=== PATIENT | female | born 1965 | race Caucasian/White ===

== ENCOUNTER → 2020-06-01 | Outpatient (CLI) | payer OTHER ==
[~2020-06-01] MED LIST: CALCIUM 600+D1 EACH PO; ESTRACE1 MG PO; KEFLEX500 M1 PO; NORCO 10-325 T1 EACH PO; NORVASC5 MG PO; PROBIOTIC1 EAC7 PO; VALIUM5 MG PO
== END | disposition home or self-care (01) ==
LOC: M.ULTRA 08:09
PROVIDERS: ATTEND Surgery
DX: R92.1 Mammographic calcification found on diagnostic imaging of breast (principal); Z79.899 Other long term (current) drug therapy

== ENCOUNTER → 2020-06-06 | Day surgery (SDC) | payer OTHER ==
[~2020-06-06] MED LIST changes: +HYDROCODON-ACE1 EAC7 PO; -NORCO 10-325 T1 EACH PO
--- NOTE | 2020-06-06 13:42 | H ---
[place] [address] HISTORY AND PHYSICAL Name: KRYSTIN MICHAEL Room: [facility].#: [id number] Admission: 06/06/20 Attend Phys: Christiane Car MD Discharge: Date of : 69 Report #: [id number] THIS REPORT FOR: cc: Santiago Doll MD, Neal A. MD ~ Christiane Car MD To be treated on 06/06/2020. ADMITTING DIAGNOSIS: Ductal carcinoma, right breast. HISTORY OF PRESENT ILLNESS: A 54-year-old female who presented to my office after evaluation by Dr. Colunga via telemedicine where she was found to have an abnormal mammogram in February and she underwent a stereotactic biopsy of the right breast and the pathology revealed ductal carcinoma in situ. PAST MEDICAL HISTORY: Heart disease. MEDICATIONS: Calcium, amlodipine, probiotic, vitamin B12, and estradiol. PAST SURGICAL HISTORY: Includes a surgical ablation of the heart for atrial fibrillation and a ganglion cyst in 2005. SOCIAL HISTORY: Former smoker, quit 3 years ago. Currently, drinks alcohol 4-5 times a week. FAMILY HISTORY: Noted for father with heart disease. REVIEW OF SYSTEMS: No nausea or abdominal pain. No axillary swellings, no new breast findings of dimpling or retractions or nipple discharge and she can feel a breast mass right now. She denies any weakness or fatigue or fever. PHYSICAL EXAMINATION: GENERAL: Modestly well-developed female in no acute distress. HEAD, EARS, EYES, NOSE AND THROAT: Unremarkable. NECK: Supple. Normal size. LUNGS: Clear. CARDIAC: Regular rate and rhythm. ABDOMEN: Soft, nontender. BREASTS: Nontender. No nipple discharge. NEUROLOGIC: She is oriented to person, place and time. IMPRESSION AND PLAN: Ductal carcinoma in situ of the right breast. After lengthy discussions and visit with her oncologist, she is wanting to proceed with seed localization followed by lumpectomy and placement of SYMONE spacer for partial breast radiation. The risks and benefits of [place] [address] HISTORY AND PHYSICAL Name: KRYSTIN MICHAEL Room: [facility].#: [id number] Admission: 06/06/20 Attend Phys: Christiane Car MD Discharge: Date of : 69 Report #: [id number] Questions answered. She understands and wishes to proceed with surgical treatment. <ELECTRONICALLY SIGNED> By: Christiane Car MD 06/06/20 1342 1218 1240Christiane Car MD /nt
--- NOTE | 2020-06-06 16:17 | EKG ---
[place] [address] ELECTROCARDIOGRAM REPORT Name: KRYSTIN MICHAEL Room: [facility]#: [id number] Admission: 06/06/20 Attend Phys: Christiane Car MD Discharge: Date of : 69 Date of Service: 06/06/20 1056 Report #: [id number] THIS REPORT FOR: //name// [facility] Test Date: 2020-06-06 Test Time: 10:56:11 Pat Name: KRYSTIN MICHAEL Department: Room: Gender: F Television Installer: Kendy DIXON RN : 1965 Requested By: Christiane Car Order Number: [id number] Maycol MD: Garcia Sunshine Measurements Intervals Glenn Rate: 55 P: 66 PA: 159 QRS: -42 QRSD: 150 T: 0 QT: 496 QTc: 475 Interpretive Statements Sinus rhythm Left bundle branch block Baseline wander in lead(s) V6 No previous ECG available for comparison Electronically Signed On 06-06-2020 16:16:58 FARM MANAGER by Garcia Sunshine [email or web address] <ELECTRONICALLY SIGNED> By: Garcia Sunshine MD, [facility] 06/06/20 1616 1056 1056 Garcia Sunshine MD, [facility] /EPI
--- NOTE | 2020-06-07 06:15 | OP ---
[address] [address] OPERATIVE REPORT Name: KRYSTIN MICHAEL Room: [facility].#: [id number] Admission: 06/06/20 Attend Phys: Christiane Car MD Discharge: Date of : 69 Report #: [id number] THIS REPORT FOR: cc: Santiago Doll MD, Neal A. MD ~ Christiane Car MD DATE OF SERVICE: 06/06/2020 PREOPERATIVE DIAGNOSIS: Ductal carcinoma in situ of the right breast. POSTOPERATIVE DIAGNOSIS: Ductal carcinoma in situ the right breast. OPERATIVE PROCEDURE: Right breast lumpectomy using seed localization extraction, placement of SYMONE spacer 40 mL. ANESTHESIA: General endotracheal with 0.5% Marcaine with epinephrine. DESCRIPTION OF PROCEDURE: The patient was brought to the operative suite and placed in a supine position with arm abducted 90 degrees and the right breast and axilla were carefully prepped and draped in our usual sterile fashion. A timeout was taken. IV antibiotics were administered. Using the seed localizer, I was able to find in the patient's right upper outer quadrant around the 3 o'clock position of the right nipple areolar area of the site of the location, I marked that site of the breast with a marking pen in a transverse direction, infiltrated that with 0.5% Marcaine. I made a transverse incision of approximately 4 cm in length. Skin flaps were raised and deep dissection into the breast parenchyma was accomplished using a cautery and Metzenbaum scissors and an Allis forceps. I took out a large portion of breast parenchyma and when I used the seed localizer, I could not get a signal, put the localizer in the patient's breast and still was getting a signal just deep to that site and as I began dissecting deeper into that same location, I was able to see the specimen and so the specimen was removed with the seed and its deep margin was tagged with a short suture. I then went back into the breast pocket and dissected a deeper margin of breast parenchyma and marked that deep margin and labeled it and sent as a separate specimen. The tissue taken out of it had an inferior and superior margins. The inferior margin was marked with 1 suture and the superior margin was marked with 2 and directly on top of that was the superficial margin. Once all specimens were taken out, bleeding was controlled with pressure and cautery and the lumpectomy pocket was present in the inferior mammary crease. Approximately at 7 o'clock, I made a small chencho of 2 cm and then infiltrated that with the Marcaine with epinephrine, I made a transverse incision there and using the spacer tunneling device, I carefully tunneled from that incision into the lumpectomy cavity and put a chencho to delineate its direction. I then threaded the SYMONE spacer catheter into that space, filled it with 30 mL and then deflated it down to 10 and leave the catheter in place. [place] [address] OPERATIVE REPORT Name: KRYSTIN MICHAEL Room: [facility] Miguel A#: [id number] Admission: 06/06/20 Attend Phys: Christiane Car MD Discharge: Date of : 69 Report #: [id number] lumpectomy cavity in 2 layers, a deep layer of 3-0 PDS sutures and then an epidermal layer of 4-0 PDS sutures, then refilled the lumpectomy SYMONE spacer with a 40 mL of saline with good seal and put Dermabond and sponge around the catheter exit site to end the operative procedure. Estimated blood loss 10 mL. Sponge and instrument count correct. Specimen to pathology. The patient was extubated, returned to recovery in stable condition. <ELECTRONICALLY SIGNED> By: Christiane Car MD 06/07/20 0615 1341 1428Christiane Car MD /nt
--- NOTE | 2020-06-15 16:06 | PATH ---
[address] [address] PATHOLOGY RPT PROCEDURE Name: HEYDI MICHAEL Room: [facility]#: [id number] Admission: 06/06/20 Date of : 69 Discharge: Report #: [id number] Path Case #: [id number] [facility] Accession Number: [id number] . 01 Material submitted: . PART A: breast - SUP. MARGIN MARKED WITH TWO SUTURES, INF. MARGIN MARKED WITH ONE. Modifiers: superior, inferior PART B: breast - RIGHT BREAST MASS- DEEP MARGIN MARKED WITH SUTURE. Modifiers: right PART C: breast - INFERIOR MARGIN SUTURE HORNER DEEP MARGIN. Modifiers: inferior . 01 Clinical history: . RIGHT BREAST DUCTAL CARINOMA LUMPECTOMY . 02 Diagnosis: A. Tissue submitted as "superior margin (marked with 2 sutures, inferior margin marked with 1 suture)": - INFILTRATING DUCTAL ADENOCARCINOMA, HIGH-GRADE, MICROPAPILLARY TYPE, SPANNING 4 MM, ADJACENT TO CHANGES OF PRIOR BIOPSY WITH SURGICAL MARGINS FREE OF INVOLVEMENT AND CLOSEST (SIDE NOT FURTHER SPECIFIED-BLACK INKED) LOCATED 0.1 MM AWAY. - DUCTAL CARCINOMA IN SITU, NUCLEAR GRADE III, COMEDO AND CLINGING TYPES, SPANNING 8 MM, ADJACENT TO CHANGES OF PRIOR BIOPSY, WITH ALL SURGICAL MARGINS FREE OF INVOLVEMENT AND CLOSEST (SIDE NOT FURTHER SPECIFIED-BLACK INKED) LOCATED 0.2 MM AWAY. SEE COMMENT. . B. Right breast mass: - Benign breast tissue with dense fibrosis and evidence of prior biopsy including chronic inflammation/fibrosis and stromal hemosiderin deposition associated with clear/copper marker, and with usual ductal epithelial hyperplasia and luminal calcifications, negative for atypia. . C. Inferior margin: - Benign breast tissue with dense fibrosis and luminal calcifications, negative for atypia. . (ADRIAN:reyes; 06/09/2020) . . Surgical Pathology Cancer Case Summary INVASIVE CARCINOMA OF THE BREAST: Resection . Procedure ___ Other: Lumpectomy . Specimen Laterality ___ [place] [address] PATHOLOGY RPT PROCEDURE Name: HEYDI MICHAEL Room: [facility]#: [id number] Admission: 06/06/20 Date of : 69 Discharge: Report #: [id number] Path Case #: [id number] . + Tumor Site + ___ Other: Medial/central (see comment) . Tumor Size ___ Greatest dimension of largest invasive focus >1 mm: 4 mm . Histologic Type ___ Invasive micropapillary carcinoma . Histologic Grade ([place] Histologic Score) Glandular (Acinar)/Tubular Differentiation ___ Score 2 (10% to 75% of tumor area forming glandular/tubular structures) . Nuclear Pleomorphism ___ Score 3 (vesicular nuclei, often with prominent nucleoli, exhibiting marked variation in size and shape, occasionally with very large and bizarre forms) . Mitotic Rate ___ Score 3 . Overall Grade ___ Grade 3 (scores of 8 or 9) . + Tumor Focality + ___ Single focus of invasive carcinoma . Ductal Carcinoma In Situ (DCIS) ___ Present + ___ Negative for extensive intraductal component (EIC) . + Size of DCIS + Estimated size (extent) of DCIS is at least 8 mm + Number of blocks with DCIS: 3 + Number of blocks examined: 23 . + Architectural Patterns + ___ Comedo + ___ Other: Clinging . + Nuclear Grade + ___ Grade III (high) . + Necrosis + ___ Present, central (expansive "comedo" necrosis) . + Lobular Carcinoma In Situ (LCIS) [place] [address] PATHOLOGY RPT PROCEDURE Name: HEYDI MICHAEL Room: [facility]#: [id number] Admission: 06/06/20 Date of : 69 Discharge: Report #: [id number] Path Case #: [id number] + ___ Not identified . Margins Invasive Carcinoma Margins ___ Uninvolved by invasive carcinoma Distance from closest margin: 0.1 mm . + Specify closest margin: Side not further specified-black inked . DCIS Margins ___ Uninvolved by DCIS Distance from closest margin: 0.2 mm . Specify closest margin: Side not further specified-black inked . Regional Lymph Nodes ___ No lymph nodes submitted or found . + Lymphovascular Invasion + ___ Not identified . . PATHOLOGIC STAGE CLASSIFICATION (PTNM, AJCC 8TH EDITION) Primary Tumor (pT) ___ pT1a:Tumor >1 mm but less than or equal to 5 mm in greatest dimension . Regional Lymph Nodes (pN) ___ pNX:Regional lymph nodes cannot be assessed . + Ancillary Studies + ___ Breast Biomarker Testing Performed on Previous Biopsy + Testing Performed on A1 . + Estrogen Receptor (ER) + ___ Positive 85% . + Progesterone Receptor (PgR) + ___ Positive 60% . + Microcalcifications + ___ Present in non-neoplastic tissue . (ADRIAN:reyes; 06/09/2020) [facility] 06/09/2020 1350 Local . 02 Comment: The great majority of the tissues submitted from all 3 specimens shows dense vaguely nodular fibrosis and foci of invasive [place] [address] PATHOLOGY RPT PROCEDURE Name: HEYDI MICHAEL [id number] Admission: 06/06/20 Date of : 69 Discharge: Report #: [id number] Path Case #: [id number] in A2 and A3 where it approximates a black inked margin approximately fpc between the superior and inferior inked margins. In A2, changes of prior biopsy are noted nearby the same black inked surface in which the invasive tumor is identified. High-grade DCIS is identified only in A2, A3 and A5. The localization of the tumor provided in this synoptic data is taken from identifier from the prior "right breast medial central, stereotactic needle core biopsy" ([id number]) which showed DCIS, high nuclear grade, with cribriform and papillary features associated with coarse calcifications. In that prior biopsy, invasive tumor was not identified and therefore a 4-panel breast tumor profile will be performed on A3, the results of which will be the subject of an addendum report. . Findings discussed with Dr. Christiane Car at approximately 1035 on 06/10/2020. . A2, A3, and A5 reviewed with Dr. Edwin Carney who agrees with the diagnosis. . (ADRIAN:reyes; 06/09/2020) . 02 Addendum: . Special studies report received from [facility], [facility], [address], [place], [address], on case [id number], labeled with their number [id number], dated 06/15/2020. . Breast/Prognostic Marker Analysis . Specimen Site: Right Breast, Lumpectomy, Breast Cancer Specimen ID #: [id number] . ER (Estrogen Receptor) Present/Positive Percent: 95.00% Analysis: Manual Comments: Staining Intensity: Strong . MS (Progesterone Receptor) Present/Positive Percent: 10.00% Analysis: Manual Comments: Staining Intensity: Weak to Moderate . HER2 Not Over-Expressed Score: 0 Analysis: Manual . Ki-67 [place] [address] PATHOLOGY RPT PROCEDURE Name: HEYDI MICHAEL Room: [facility]#: [id number] Admission: 06/06/20 Date of : 69 Discharge: Report #: [id number] Path Case #: [id number] Percent: 40.00% Analysis: Manual . Time to Fixation (Cold Ischemic Time): 6 minutes Duration of Fixation: 34 hours 37 minutes Type of Fixative: 10% Neutral Buffered Formalin . Comments: ER/PgR testing at [facility]. is performed in compliance with the ASCO/CAP Clinical Practice Guidelines. If the result for ER is less than 1% it is reported as Negative; if the ER result is 1-10% it is reported as Low Positive; if the ER result is greater than 10% it is reported as Positive. If the result for PgR is less than 1% it is reported as Negative; if the PgR result is equal to or greater than 1%, it is reported as Positive. . REFERENCE: Munira OLEARY, Digna BARNARD, Luz Marina M, et al. Estrogen and progesterone receptor testing in breast cancer. ASCO/CAP guideline update. Arch Pathol Lab Med. 2020; 144:545-563. . Whole slide image capture is performed using [employer] ([employer]) platform. Image analysis, if ordered, is performed using O[employer] software. . at [facility]. Danika Clemente D.O. Surgical Pathologist . Methodology The HER2 Receptor protein expression is analyzed using the [place] HER2 rabbit monoclonal antibody (clone 4B5). This assay is used for diagnostic determination of the HER2 protein over-expression in paraffin embedded, formalin fixed breast cancer tissue on the [place] Benchmark. The specimen is processed using a secondary antibody-HRP conjugate detection system. The membrane staining of the tumor is determined either by manual score or image analysis. This antibody is intended for in vitro diagnostic use. The score is reported as 0, 1+, 2+, or 3+. This test is used for clinical purposes. . A rabbit monoclonal antibody (clone SP1) that recognized the Estrogen Receptor is used to perform immunohistochemistry on routinely fixed (formalin) paraffin embedded tissue on the [place] Benchmark. The specimen is processed using a secondary antibody-HRP conjugate detection system. The percentage of stained tumor nuclei is determined either manually or by image analysis. This test is intended for in vitro diagnostic use. This test is used for clinical purposes. . A rabbit monoclonal antibody (clone 1E2) that recognized [place] [address] PATHOLOGY RPT PROCEDURE Name: HEYDI MICAHEL Room: [facility]#: [id number] Admission: 06/06/20 Date of : 69 Discharge: Report #: [id number] Path Case #: [id number] Receptor is used to perform immunohistochemistry on routinely fixed (formalin) paraffin embedded tissue on the [place] Benchmark. The specimen is processed using a secondary antibody-HRP conjugate detection system. The percentage of stained tumor nuclei is determined either manually or by image analysis. This test is intended for in vitro diagnostic use. This test is used for clinical purposes. . A rabbit monoclonal antibody (clone 30-9) that recognized Ki67 is used to perform immunohistochemistry on routinely fixed (formalin) paraffin embedded tissue on the [place] Benchmark. The specimen is processed using a secondary antibody-HRP conjugate detection system. The percentage of stained tumor nuclei is determined either manually or by image analysis. This test is intended for in vitro diagnostic use. This test is used for clinical purposes. . Intended Use: This antibody is intended for in vitro diagnostic (IVD) use. HER2 (4B5) is a rabbit monoclonal antibody intended for the semi-quantitative detection of HER2 antigen in sections of formalin-fixed, paraffin embedded normal and neoplastic tissue. . This antibody is intended for in vitro diagnostic (IVD) use. Estrogen Receptor (ER) (SP1) is a rabbit monoclonal antibody (IgG) that is intended for the qualitative detection of estrogen receptor (ER) antigen in sections of formalin-fixed, paraffin-embedded tissue. ER is a rabbit monoclonal antibody that recognizes human estrogen receptor alpha. . This antibody is intended for in vitro diagnostic (IVD) use. Progesterone Receptor (MS) (1E2) is a rabbit monoclonal antibody (IgG) that is intended for the qualitative detection of progesterone receptor (MS) antigen in sections of formalin fixed, paraffin embedded tissue. MS is a rabbit monoclonal antibody that recognizes the A and B forms of the human progesterone receptor. . This antibody is intended for in vitro diagnostic (IVD) use. Ki-67 (30-9) is a rabbit monoclonal antibody (IgG) directed against C-terminal portion of Ki-67 antigen. Staining for Ki-67 can be used to aid in assessing the proliferative activity of normal and neoplastic tissue. Ki-67 is a nuclear protein expressed in proliferating cells. During the cell cycle, the Ki-67 antigen is present in the G1, S, G2 and M phase but is absent in the G0 (quiescent phase). . . Disclaimer: This Test was performed by [facility] at [address], [address]. . [facility] is a business unit of [facility] a wholly-owned subsidiary of [place] [address] PATHOLOGY RPT PROCEDURE Name: HEYDI MICHAEL Room: [facility]#: [id number] Admission: 06/06/20 Date of : 69 Discharge: Report #: [id number] Path Case #: [id number] [employer]. . This assay has not been validated on decalcified tissues. Results should be interpreted with caution if this specimen was decalcified given the likelihood of false negativity on decalcified specimens. . Any image(s) that accompany this report is/are a security systems sales representative image(s) only and should not be used to render a diagnosis. . This interpretation is contingent on the specimen and the clinical information received. . For any special tests/stains performed, known positive cells or tissues are tested with each marker and examined to ensure positivity. Positive and negative internal controls, if present, react appropriately. . This analysis is an adjunct to the evaluation of the referring physician and does not represent a final diagnosis. . The immunohistochemistry tests performed at [facility] were validated on tissue fixed in 10% neutral buffered formalin. The performance characteristics of the tests performed on tissue processed in other fixatives is not known. . HER2 testing at [facility] is performed in compliance with the 2018 updated ASCO/CAP Clinical Practice Guideline Focused Update. If the result is EQUIVOCAL (2+), it must be confirmed by an alternative assay such as FISH or Dual DEMETRIO. REF: John POLLOCK, DEREK Sawyer et al: Human Epidermal Growth Factor Receptor 2 Testing in Breast Cancer: ASCO/CAP Clinical Practice Guideline Focused Update. J Clin Oncol 36:0607-9724, 2018. . HER2 and ER/MS ASCO/CAP guidelines require fixation in neutral buffered formalin for a minimum of 6 and a maximum of 72 hours. Fixation times less than 6 hours may not adequately preserve cell proteins. Fixation times longer than 72 hours may cause excess cross-linking of proteins reducing the antigen available for staining. Either scenario can cause reduced staining; hence false negative results are possible and should be considered for these situations if the HER2 IHC score is less than 3+ or ER or MS is negative (no staining or <1% positive). It is recommended that specimens fixed longer than 72 hours with HER2 IHC scores less than 3+ be confirmed by HER2 FISH or Dual DEMETRIO. The time from biopsy/excision to fixation in formalin (cold ischemic time) must be less than 1 hour. Time to fixation (cold ischemic time) greater than 1 hour should be interpreted with caution. HER2 testing, mainly HER2 by FISH, is particularly vulnerable since excessive cold ischemic time results in preferential loss of HER2 probe signals that may lead to false negative results. . SCORE STAINING PATTERN IN TUMOR [place] [address] PATHOLOGY RPT PROCEDURE Name: HEYDI MICHAEL Neftali [facility] [id number] Admission: 06/06/20 Date of : 69 Discharge: Report #: [id number] Path Case #: [id number] RESULTS 0 No staining observed or incomplete, faint membrane staining in less than or equal to 10% of tumor cells. Negative 1+ Incomplete, faint membrane staining in greater than 10% of tumor cells. Negative 2+ Weak to moderate complete membrane staining observed in greater than 10% of tumor cells. Equivocal* *Must be confirmed by alternative assay (IHC/FISH/Dual DEMETRIO) 3+ Intense, complete membrane staining in greater than 10% of tumor cells. Positive . A complete copy of the report is on file. . Professional and Technical services performed by [facility]. at [address], [facility] [address], [place] [address]. . (ADRIAN:[facility] 06/15/2020) . [facility]/06/15/2020 Addendum Electronically Signed by Abdelrahman Stephenson MD, Pathologist . 02 Electronically signed: . Abdelrahman Stephenson MD, Pathologist NPI- [id number] . 01 Gross description: . A. The specimen is received in formalin, labeled "Heydi Michael, superior margin marked with 2 sutures, inferior margin marked with one suture". The site is further designated on the requisition as, "right breast". Received is a 16 g lumpectomy specimen measuring 4.0 x 3.0 x 2.9 cm in greatest dimensions. The specimen is inked as follows: Superior-blue, inferior-green, remainder of specimen-black. The specimen is sectioned into 11 pieces to reveal white, fibrous to bright yellow, lobulated cut surfaces throughout, with the fibrous tissue encompassing approximately 60% of the specimen. No distinct nodules or lesions are noted grossly. The specimen is submitted entirely in cassettes A1 through A17, with the sections in cassettes A3 through A14 additionally bisected. The cold ischemic time is 6 minutes. The total formalin fixation time is 34 hours and 37 minutes. . B. The specimen is received in formalin, labeled "Tawny Gamez breast mass, deep margin marked with suture". Received is a 2 g segment of white, fibrous to bright yellow, lobulated tissue measuring 2.2 x 1.3 [place] [address] PATHOLOGY RPT PROCEDURE Name: HEYDI MICHAEL Room: [facility]#: [id number] Admission: 06/06/20 Date of : 69 Discharge: Report #: [id number] Path Case #: [id number] 1.0 cm. The new margin is marked with a suture and is differentially inked orange. The specimen is sectioned into 5 slices to reveal white, fibrous to bright yellow, lobulated cut surfaces throughout with no grossly distinct nodules or lesions. A clear/copper marker is identified within slice 3. The specimen is submitted entirely in cassettes B1 through B3. The cold ischemic time is less than one minute. The total formalin fixation time is 34 hours and 43 minutes. . C. The specimen is received in formalin, labeled "Heydi Michael, inferior margin, suture horner deep margin. Received is a 2 g segment of white, fibrous tissue measuring 2.2 x 1.8 x 1.3 cm with a suture designating the new deep margin, which is inked orange. The specimen is serially sectioned into 6 slices to reveal white, fibrous cut surfaces throughout with no grossly distinct nodules or lesions. The specimen is submitted entirely in cassettes C1 through C3. The cold ischemic time is 3 minutes. The total formalin fixation time is 34 hours and 40 minutes. (CAA; 06/07/2020) QAC/QAC 06/08/2020 1628 Local . 02 Pathologist provided ICD-10: C50.911, D05.11, N60.31, N61.0, N62, N60.39 . 02 CPT . 423517, 382171, 777677 Specimen Comment: A courtesy copy of this report has been sent to [phone] Specimen Comment: [phone] Specimen Comment: Report sent to / DR PARSON Performed at: [address] [place] [address] [address] [id number] MD Mihai Horton MD Phone: [phone] Performed at: [address] [place] [address] [address], [place], [place] [id number] MD Abdelrahman Stephenson MD Phone: [phone]
== END | disposition home or self-care (01) ==
LOC: M.SUR 09:36 → EDSTATUS 10:00 → M.SUR 10:00 → M.NUC 10:00
PROVIDERS: ATTEND Surgery
DX: C50.911 Malignant neoplasm of unspecified site of right female breast (principal); N60.31 Fibrosclerosis of right breast; N62 Hypertrophy of breast; N60.39 Fibrosclerosis of unspecified breast; I48.91 Unspecified atrial fibrillation; R92.1 Mammographic calcification found on diagnostic imaging of breast; Z98.890 Other specified postprocedural states; Z79.899 Other long term (current) drug therapy; Z79.01 Long term (current) use of anticoagulants; Z87.891 Personal history of nicotine dependence

== ENCOUNTER → 2020-06-13 | Day surgery (SDC) | payer OTHER ==
--- NOTE | 2020-06-12 21:08 | H ---
[place] [address] HISTORY AND PHYSICAL Name: KRYSTIN MICHAEL Room: [facility]..#: [id number] Admission: Attend Phys: Josep Grande MD Discharge: Date of : 69 Report #: [id number] THIS REPORT FOR: cc: Santiago Doll MD, Neal A. MD ~ Christiane Car MD DATE OF SERVICE: 06/13/2020 Preoperative history and physical The patient is to be treated on 06/13/2020. ADMITTING DIAGNOSIS: Infiltrative ductal carcinoma, right breast. HISTORY OF PRESENT ILLNESS: The patient is a 54-year-old female who presented to my office with a DCIS and was taken to surgery on 06/06/2020 for a lumpectomy with a SYMONE spacer. Her final pathology report returned back a component of invasive carcinoma and a near the superior margin so she is being re-operated on to resect a wider margin and obtain a sentinel node on the same side. PAST MEDICAL HISTORY: Heart disease. MEDICATIONS: Calcium, amlodipine, probiotic, vitamin B12, and estradiol. PAST SURGICAL HISTORY: Includes his previous surgery and a heart ablation and ganglion cyst removal. SOCIAL HISTORY: She is a former smoker, quit 3 years ago and she drinks alcohol 4-5 times a week. FAMILY HISTORY: Noted for father having heart disease. REVIEW OF SYSTEMS: Otherwise, noncontributory. PHYSICAL EXAMINATION: GENERAL: The patient is a well-developed, well-nourished female in no acute distress. HEAD, EARS, EYES, NOSE AND THROAT: Unremarkable. NECK: Supple. LUNGS: Clear. CARDIAC: Regular rate and rhythm. ABDOMEN: Soft, nontender. BREAST: On the right side she has a spacer catheter with operative changes from her recent lumpectomy and no axillary swelling. NECK: [place] [address] HISTORY AND PHYSICAL Name: KRYSTIN MICHAEL Room: [facility].#: [id number] Admission: Attend Phys: Josep Grande MD Discharge: Date of : 69 Report #: [id number] NEUROLOGIC: She is oriented to person, place and time. IMPRESSION AND PLAN: Invasive carcinoma of the right breast. She will undergo reexcision lumpectomy and right sentinel node biopsy clip and using tracer. Risks and benefits were explained and questions answered. She understands and wishes to proceed. <ELECTRONICALLY SIGNED> By: Christiane Car MD 06/12/20 2108 1223 1247Christiane Car MD /nt
[2020-06-13 11:52] LABS: HEMATOCRIT 38.7 % (37.0-47.0); MCH 33.2 pg (26.0-34.0); MCHC 33.6 g/dL (28.0-37.0); MCV 98.8 fL (80.0-100.0); MPV 7.3 fl. (7.2-11.1); RBC 3.92 mil/uL (4.20-5.00); RDW-CV 12.6 % (10.5-14.5)
[2020-06-13 11:57] LABS: POTASSIUM 3.9 mmol/L (3.5-5.1)
--- NOTE | 2020-06-14 17:38 | OP ---
[address] [address] OPERATIVE REPORT Name: KRYSTIN MICHAEL Neftali Room: [facility]#: [id number] Admission: 06/13/20 Attend Phys: Christiane Car MD Discharge: Date of : 69 Report #: [id number] THIS REPORT FOR: cc: Santiago Doll MD, Neal A. MD ~ Christiane Car MD DATE OF SERVICE: 06/13/2020 PREOPERATIVE DIAGNOSIS: Invasive breast cancer, right breast. POSTOPERATIVE DIAGNOSIS: Invasive breast cancer, right breast. OPERATIVE PROCEDURE: Right breast reexcision lumpectomy of the superior medial and superior lateral margins, replacement of SYMONE spacer catheter and right sentinel node biopsy with Lymphazurin and radioactive tracer. ANESTHESIA: Laryngeal mask with 0.5% Marcaine with epinephrine. OPERATIVE FINDINGS: Normal appearing breast parenchyma with re-excised margins which were labeled with 1 suture for the medial margin and 2 for the lateral margin superiorly and a blue dye stained sentinel node. DESCRIPTION OF PROCEDURE: The patient was placed under laryngeal mask anesthesia and the patient's right breast and axilla were carefully prepped and draped in a sterile fashion. A timeout was taken. IV antibiotics administered. The SYMONE spacer catheter was reduced by removing 30 mL of saline and then the catheter was retracted. The incision was then carefully opened with a #15 scalpel blade and we entered into the lumpectomy cavity. Using an [facility] retractor, the superior margin was identified and using an Allis grasper to grasp the superior lateral margin and cautery, I excised out the superior margin for a depth of approximately 1 cm. That specimen, once it was excised, two sutures were placed on the new margin and sent for pathology. I still felt that there was still more superior margin medial so I grasped the medial aspect of the superior margin with an Allis clamp and excised that out and placed one suture on the new margin and it was sent to pathology. The bleeding bed was dry. I, then under direct visualization, fed in a new SYMONE spacer partially into the space and then reapproximated the lumpectomy cavity with deep interrupted 3-0 PDS sutures and subdermal 4-0 PDS sutures and filled it to 20 mL of water. I then directed my attention to the right axilla. I used a Neoprobe to get a hot spot and marked it and identified it. I also injected subdermal to the nipple areolar complex at the 12 o'clock, 3 o'clock and 6 o'clock and I was able to massage that into the breast and then injected into the left axilla with the Marcaine and epinephrine mixture. I made a transverse incision of approximately 4 cm underneath the patient's right axilla. Using cautery and blunt dissection, I dissected into the axillary fat pad [place] [address] OPERATIVE REPORT Name: ISABEL MICHAELTRISTEN Lindsay Room: [facility] Miguel A#: [id number] Admission: 06/13/20 Attend Phys: Christiane Car MD Discharge: Date of : 69 Report #: [id number] into the axillary fat pad, I saw a spot of blue swelling that looked consistent with a sentinel node. It did have a signal. I then reached in with an Allis clamp and lifted it up and then sharply dissected it out. There was clearly a blue lymph node that had a signal and I sent that off to pathology as well. The wound bed was inspected for any ongoing bleeding, which was dry. I then reapproximated the deep tissues with an interrupted 3-0 PDS suture and then closed the epidermis with a running subcuticular 4-0 PDS sutures and sealed it with Dermabond, ending the operative procedure. ESTIMATED BLOOD LOSS: 2 mL. COUNTS: Sponge and instrument counts correct. SPECIMENS: To pathology. The patient was taken off laryngeal mask, returned to recovery in satisfactory condition. <ELECTRONICALLY SIGNED> By: Christiane Car MD 06/14/20 1738 1552 1650Christiane Car MD /dick
--- NOTE | 2020-06-16 16:06 | PATH ---
[address] [address] PATHOLOGY RPT PROCEDURE Name: HEYDI VILLASEÑOR Room: [facility]#: [id number] Admission: 06/13/20 Date of : 69 Discharge: Report #: [id number] Path Case #: [id number] [facility] Accession Number: [id number] . 01 Material submitted: . PART A: breast - 2 SUTURE NEW SUPERIOR LATERAL MARGIN, RIGHT BREAST. Modifiers: right, superior, lateral PART B: breast - 1 SUTURE SUPERIOR MEDIAL MARGIN,RIGHT BREAST. Modifiers: right, superior, medial PART C: axilla - SENTINEL NODE RIGHT AXILLA. Modifiers: right . 01 Clinical history: . RIGHT BREAST CANCER . 02 Diagnosis: A. New superior lateral margin (2 suture): - Benign breast tissue with dense fibrosis, usual duct epithelial hyperplasia and evidence of recent instrumentation including mild chronic inflammation and foreign body type granulomata, with luminal calcifications, negative for atypia. . B. Superior medial margin (1 suture): - Benign breast tissue with dense fibrosis, usual duct epithelial hyperplasia and evidence of recent instrumentation including mild chronic inflammation and foreign body type granulomata, with luminal calcifications, negative for atypia. . C. Brenton node right axilla: - One benign lymph node with black pigment typical of tattoing (0/1). See comment. (ADRIAN:ashvin; 06/16/2020) S 06/16/2020 1531 Local . 02 Comment: A properly controlled keratin AE1/AE3 performed on C1 is negative. (ADRIAN:ashvin; 06/16/2020) . 02 Electronically signed: . Abdelrahman Stephenson MD, Pathologist NPI- [id number] . 01 Gross description: . A. The specimen is received in formalin, labeled "Heydi Michael, 2 sutures new superior lateral margin". Received is a 1 g segment of yellow-bellamy to white-bellamy soft tissue measuring 2.4 x 1.2 x 0.9 cm in greatest dimensions with a suture designating the new superior lateral margin. The new margin is inked black. Sectioning reveals yellow-bellamy to white, fibrous cut surfaces. The specimen [place] [address] PATHOLOGY RPT PROCEDURE Name: HEYDI MICHAEL Room: [facility]#: [id number] Admission: 06/13/20 Date of : 69 Discharge: Report #: [id number] Path Case #: [id number] entirely submitted in cassettes A1 through A4. The cold ischemic time is less than 1 minute. The total formalin fixation time is 53 hours and 55 minutes. . B. The specimen is received in formalin, labeled "Heydi Michael, 1 suture superior medial margin". Received is a less than 1 g segment of white fibrous tissue measuring 1.9 x 0.9 x 0.5 cm in greatest dimensions with a suture designating the new superior medial margin. The new margin is inked black. Sectioning reveals white, fibrous cut surfaces throughout. The specimen is serially sectioned and entirely submitted in cassettes B1 and B2. The cold ischemic time is less than 1 minute. The total formalin fixation time is 53 hours and 55 minutes. . C. The specimen is received in formalin, labeled "Heydi Michael, R axilla sentinel node". Received is a segment of yellow-bellamy lobulated tissue measuring 2.1 x 1.5 x 0.6 cm in greatest dimensions. Dissection and palpation of the specimen reveals a single lymph node measuring 0.8 cm in maximum dimensions. The lymph node is bisected and entirely submitted in cassette C1. Immunohistochemical stains are ordered. (CAA; 06/15/2020) QAC/QAC 06/15/2020 1534 Local . 02 Pathologist provided ICD-10: N60.31, N62, N61.0, N60.32 . 02 CPT . 029024, 791651, 897867, R11501 Specimen Comment: A courtesy copy of this report has been sent to [phone] Specimen Comment: [phone] Specimen Comment: Report sent to / DR PARSON Performed at: 01 [facility] [address] [facility] [address], [place], [place] [id number] MD Mihai Horton MD Phone: [phone] Performed at: [address] [facility] [address] [facility] [place], [place] [id number] MD Abdelrahman Stephenson MD Phone: [phone]
== END | disposition home or self-care (01) ==
LOC: M.SUR 06:42
PROVIDERS: ATTEND Surgery
DX: N60.31 Fibrosclerosis of right breast (principal); N62 Hypertrophy of breast; N61.0 Mastitis without abscess; I51.9 Heart disease, unspecified; Z98.890 Other specified postprocedural states; Z79.899 Other long term (current) drug therapy; Z87.891 Personal history of nicotine dependence